=== PATIENT | female | born 1970 | race Caucasian/White ===

== ENCOUNTER → 2017-07-28 | Outpatient (CLI) | payer OTHER ==
[~2017-07-28] MED LIST: ALBU90OI INH; ASPI81CH PO; BENTYL10 MG PO; CETI5 PO; CYCL10 PO; ERGO400 PO; FLUC150A PO; Ferrous Sulfat325 MG PO; HYDACE5 PO; Hair, Skin & N1 EACH PO; MONO-LINYAH1 EACH PO; MONT10T PO; Miralax17 GM PO; NASACORT10.8 ML; PREN-16 PO; Sudogest30 MG PO
[2017-07-28 14:52] LABS: Source, Urine Clean Catch
[2017-07-28 18:26] LABS: Appearance, Urine Clear (Clear); Bilirubin, Urine Neg (Neg); Blood, Urine 1+ (Neg); Color, Urine Yellow (P-Yellow); Glucose Qualitative, Urine Neg (Neg); Ketones, Urine Neg (Neg); Leukocyte Esterase, Urine 2+ (Neg); Nitrite, Urine Neg (Neg); Protein, Urine Neg (Neg); Urobilinogen, Urine NORM (Normal); pH, Urine 6.5 (5.0-8.0)
[2017-07-28 18:58] LABS: Bacteria Mod /hpf; Squamous Epithelial Cells Not Seen /hpf (Few); White Blood Cells, Urine Not Seen /hpf (0-5)
[2017-07-28 18:59] LABS: Calcium Oxalate Crystals Few /hpf
== END | disposition home or self-care (01) ==
LOC: LAB 14:37
PROVIDERS: Obstetrics & Gynecology
DX: R82.99 Other abnormal findings in urine (principal)
CPT/HCPCS: 81001; 87077; 87086; 87186

== ENCOUNTER → 2017-07-28 | Outpatient (CLI) | payer OTHER ==
[2017-07-29 09:39] LABS: Candida species (DNA Probe) Negative (NEGATIVE); G. vaginalis (DNA Probe) Negative (NEGATIVE); T. vaginalis (DNA Probe) Negative (NEGATIVE)
== END | disposition home or self-care (01) ==
LOC: LAB 15:46
PROVIDERS: Obstetrics & Gynecology
DX: N76.0 Acute vaginitis (principal)
CPT/HCPCS: 81001; 87077; 87086; 87186; 87480; 87510; 87660

== ENCOUNTER → 2018-11-25 | Outpatient (CLI) | payer OTHER ==
[2018-11-25 14:51] LABS: Candida species (DNA Probe) Negative (NEGATIVE); G. vaginalis (DNA Probe) Negative (NEGATIVE); T. vaginalis (DNA Probe) Negative (NEGATIVE)
[2018-11-26 15:06] LABS: HPV 16 Positive (Negative); HPV 18 Negative (Negative); HPV OTHER HR TYPES Negative (Negative)
== END | disposition home or self-care (01) ==
LOC: LAB SHORT 10:41 → LAB 10:41
PROVIDERS: Obstetrics & Gynecology
DX: Z01.419 Encounter for gynecological examination (general) (routine) without abnormal findings (principal); N76.0 Acute vaginitis
CPT/HCPCS: 87480; 87510; 87624; 87625; 87660; G0123

== ENCOUNTER → 2018-12-22 | Outpatient (CLI) | payer OTHER | END | disposition home or self-care (01) | LOC: LAB SHORT 08:26 → PLD 08:26 | DX: R87.618 Other abnormal cytological findings on specimens from cervix uteri (principal) | CPT/HCPCS: 88305 ==